=== PATIENT | male | born 1975 | race Caucasian/White ===

== ENCOUNTER → 2018-01-15 08:02 | Outpatient (CLI) | payer OTHER, SELFPAY ==
--- NOTE | 2018-01-15 | DI.MRI.S_ITS ---
PROCEDURE: MR LUMBAR SPINE WO CON INDICATIONS: PARS DEFECT WITH SPONDIDYOSIS TECHNIQUE: Noncontrast sagittal T1 spin echo and T2 fast echo, sagittal STIR, axial T1 and T2 fast spin echo through the lumbar spine. In cases with scoliosis, additional coronal T2 fast spin echo may be performed. COMPARISON: None. FINDINGS: Image quality: Excellent. Alignment and Curvature: Straightening of the normal lumbar lordosis. Trace retrolisthesis of L4-L5 and trace anterolisthesis of L5 on S1. Bone Marrow: Chronic L5 pars defects noted. No acute vertebral body compression fractures. Spinal Cord: Conus medullaris terminates at the L2 level. Visualized cord demonstrates normal signal and size. Paraspinous Soft Tissues: No paravertebral masses. L1-L2: No definite canal or foraminal narrowing. L2-L3: Facet degeneration without definite canal or foraminal stenosis. L3-L4: Mild broad-based posterior disc bulge and bilateral facet arthropathy. Mild canal narrowing. No definite foraminal stenosis. L4-L5: Broad-based posterior disc bulge and bilateral facet arthropathy. Mild canal narrowing. Moderate to severe right and moderate left foraminal narrowing. L5-S1: Posterior annular fissure and broad-based posterior disc bulge. Bilateral facet arthropathy. No definite foraminal stenosis. Mild left and right foraminal narrowing. IMPRESSION: Straightening of the normal lumbar lordosis with trace anterolisthesis of L5 on S1 and trace retrolisthesis of L4 and L5. No high-grade canal stenosis. Moderate to severe right L4-L5 foraminal narrowing. Moderate left L4-L5 foraminal narrowing. Mild bilateral L5-S1 foraminal stenoses. Chronic L5 pars defects. Dictated by: John Schaefer M.D. on 01/15/2018 at 9:11 Approved by: John Schaefer M.D. on 01/15/2018 at 9:17
== END ==
PROVIDERS: Visit Provider Orthopaedic Surgery
DX: M47.816 Spondylosis without myelopathy or radiculopathy, lumbar region (principal); M48.061 Spinal stenosis, lumbar region without neurogenic claudication; M43.06 Spondylolysis, lumbar region
CPT/HCPCS: 72148

== ENCOUNTER 2018-03-07 06:09 | Inpatient (IN) | payer OTHER, SELFPAY ==
[2018-02-20 07:42] VITALS: BMI 25.9
[2018-03-07] VITALS (21 sets, daily range): BP systolic 101–129; BP diastolic 70–84; PULSE 77–103; RESP 10–20; TEMP 36.3–37.1; O2SAT 94–99; BMI 26.1
--- NOTE | 2018-03-07 | DI.RAD.S_ITS ---
PROCEDURE: XR LUMBAR SPINE 2-3V INDICATIONS: L5-S1 TLIF TECHNIQUE: 2 views of the lumbar spine were acquired. COMPARISON: None. FINDINGS: 2 intraoperative fluoroscopy images demonstrate discectomy and posterior fusion at L5-S1. Surgical hardware is in expected position. Alignment is normal. IMPRESSION: Discectomy and posterior fusion at L5-S1. Dictated by: Xochitl Andrews M.D. on 03/07/2018 at 10:48 Approved by: Xochitl Andrews M.D. on 03/07/2018 at 10:49
--- NOTE | 2018-03-07 07:15 | PM.PREOP ---
Pre-operative Note Interval Note Pre-op Check: Yes History & Physical Reviewed by Physician and Yes Exam Performed Changes: No
[2018-03-07] MEDS: LACTATED RINGERS 1,000 ML 42 ML IV ×2 (07:25→09:50)
--- NOTE | 2018-03-07 07:45 | PM.OP.1 ---
Operative Date/Time/Diagnoses Date of procedure: 03/07/18 Time of procedure: 10:15 Pre-op diagnosis: lumbar stenosis with radiculopathy lumbar spondylolisthesis with pars defect Post-op diagnosis: same Procedure & Clinicians Procedure: L5S1 TLIF (post/post innerbody fusion) cage screws L5S1 Akers laminectomy microscope icbg aspirate placement of epidural catheter Indications: [age] year old male with intractable pain from stenosis. They had failed conservative management and requested operative intervention. Risks and benefits of surgery were discussed and appropriate consents were obtained. Surgeon: Ayden Vail Implementation Specialist Payroll: Basia Clarke Anesthesia Type: General Operative Notes Findings: none Closure Type: primary Specimen(s): none sent Implants & Drains: NuVasive Precept screws Globus rise cage Applied: catheter Estimated Blood Loss (mL): 20 Procedure in detail: The patient was brought to the operating room and intubated on the table. A time-out was performed. They were then rolled over to the well-padded Tee table in the prone position. Preoperative antibiotics were given. The back was prepped and draped in the standard sterile fashion. Using fluoroscopy, a 4 cm longitudinal incision was made to the right of the midline. We used Bovie to come down to and split the lumbodorsal fascia. Using fluoroscopy and monitoring, we then percutaneously placed Jamshidi needles down the pedicles of L5 and S1 on the right side. These were changed out to guidewires and then we tapped and then placed the NuVasive MAS Precept screw shanks. We then opened up the retractors and used Bovie to clear up the posterolateral gutter as well as medially along the lamina to the spinous processes. A bur was used to decorticate the transverse processes. We brought in the microscope. Using a combination of bur and Kerrison rongeurs, a Akers laminectomy was performed from the right side. We had to clear out the hypertrophic pars defect as well as decompress around the facet and the neural foramen. There is large amount of scar tissue around the hypertrophic pars defect that required extensive time to decompress. At the end of this we could sweep the ball probe safely to the other side and out the neural foramen and everything was open. Because this was a Akers laminectomy, this is separate and distinct from an approach to a standard TLIF as requires much more time and decompression over the pars defect. We then began the TLIF prep. A complete facetectomy was performed on this side at L5-S1. We carefully cleaned up the remainder of the foramen until we could easily retract the exiting root as well as clearing medially below the dura and expose the disc space. The disc was prepped with bipolar and then an annulotomy was performed. We performed a diskectomy using a combination of paddles, federico, Kerrison, and curettes. We distracted the disc using a paddle and locked the retractor in an open position. We then filled the disc space with Osteocell bone graft. We then placed the globus Rise cage under fluoroscopy and then filled this in with more bone graft. The distraction on the retractor was released to compress down. This completed the posterior interbody fusion portion of the TLIF at L5-S1. We then placed the screw heads, sandra, and locked down the set screws. The wound was copiously irrigated. A small stab incision was made over the PSIS. We used a Jamshidi needle to aspirate several mL of bone marrow from the pelvis. This was mixed with the remaining Osteocell and combined with all of the locally harvested bone graft and placed in the posterolateral gutter for the posterior fusion of the TLIF at L5-S1. An epidural catheter was then placed in the spinal canal by carefully depressing the dura and advancing it 6 cm cephalad under the remaining lamina without resistance. The muscle fascia was closed. The catheter was then injected with a solution containing 4 mL of 0.5% Marcaine, 1 mg Stadol, 4 mg Duramorph, and 100 mcg of fentanyl. This was injected without resistance and the catheter was pulled. We then went to the opposite side. Again using fluoroscopy, a 3 cm incision was made and Bovie was used to come down to split the fascia. Using neural monitoring and fluoroscopy, Jamshidi needles were advanced down the pedicles of [] on the [] side. These were switched over guidewires, tapped, and screws placed. We then placed a sandra and locked the set screws on this side. The wound was irrigated. The fascia was closed. Vancomycin powder was placed in the wounds. The superficial and skin were closed. A sterile dressing was placed. The patient was then rolled over extubated and brought to recovery room without complications. Complications: none Condition: stable Disposition: PACU Plan for aftercare: Inpatient. Up with physical therapy
[2018-03-07] MEDS: CEFAZOLIN 2 GM/100 ML FROZ.PIGGY IV ×2 (07:50→16:55)
--- NOTE | 2018-03-07 08:23 | SUR.OPER ---
Prone on spine table, head in foam head support, padded chest and pelvic supports, gel pad at knees, lower legs supported by pillows; nipples, genitalia and toes free of pressure, arms secured on foam padded arm boards at <90 degrees abduction. Tape over blanket at thigh secured to table.
[2018-03-07] MEDS: VANCOMYCIN 1,000 MG VIAL 1000 MG TOP (08:42)
[2018-03-07] MEDS: SODIUM CHLORIDE 0.9% 1,000 ML, GENTAMICIN 80 MG IRR (08:42)
[2018-03-07] MEDS: BUPIVACAINE 0.5% (PF) 4 ML, MORPHINE-PF 4 MG, BUTORPHANOL 1 MG, fentaNYL 100 MCG INJ (09:36)
[2018-03-07] MEDS: HYDROMORPHONE 2 MG INJ 0.5 MG IV ×5 (10:40→11:35)
[2018-03-07] MEDS: HYDROMORPHONE 2 MG INJ 1 MG IV (10:49)
[2018-03-07] MEDS: LORazepam 2 MG/ML SYRINGE 0.25 MG IV (10:54)
--- NOTE | 2018-03-07 11:19 | SUR.PHASEI ---
pt complaining of pain and pt medicated and repositioned. pt given lorazapam for anxiety. pt turned to right side. Iv infusing without difficulty and pt taking deep breaths. ice pack applied to his lower back .
[2018-03-07] MEDS: LACTATED RINGERS 1,000 ML 125 ML IV ×2 (13:27→20:47)
[2018-03-07] MEDS: HYDROCODONE/ACET 5/325 TABLET 2 TAB PO ×3 (13:27→21:43)
[2018-03-07] MEDS: CELECOXIB 200 MG CAPSULE 400 MG PO (13:27)
--- NOTE | 2018-03-07 13:53 | CM.IDA ---
Discharge Planning/Care Management CM Discharge Assessment Start: 03/07/18 13:36 Freq: Status: Active Protocol: Document 03/07/18 13:37 ROBERTO (Rec: 03/07/18 13:52 ROBERTO [email or web address]) Discharge Planning Assessment Assigned Fitter Welder DANIEL Gautam DPOA/Assigned Designee Name Brandy Terrell (Mom) Contact Information [phone] Advance Directives? No: Declines further information Prior Living Arrangements House Household Members none Type of transporation used prior to Drives own vehicle admit Independent with ADL's Yes Is patient alert and oriented? Yes Comment Likely DC home, need to assess . Comment Pt off the medical floor for spinal surgery today. DC needs pending assessment from this LIME SLUDGE MIXER and therapy team once pt is on the medical floor from the OR. Hx includes ETOH abuse and anxiety/depression. Transportation Arrangement Likely family to transport home. Review Status In Process
[2018-03-07] MEDS: hydrOXYzine pamoate 25 MG CAPSULE PO ×2 (14:51→20:53)
--- NOTE | 2018-03-07 15:22 | PT.IIE ---
Addendum entered and electronically signed by Alyssia Castanon PT 03/08/18 08:36: This is to certify that I have reviewed this documentation and POC. Original Note: Current Diagnoses Spondylolysis, site unspecified (03/07/18) Spinal stenosis, lumbar region with neurogenic claudication (03/07/18) Surgery Performed Operation Date: 03/07/18 07:45 Actual Procedures p L5-S1 Laminectomy & Instru fusion(TLIF)w/bone graft(Not Applicable) - Ayden Vail MD Surgical History (Last Updated 02/20/18 @ 09:05 by Raeann Guan RN) History of photorefractive keratectomy (PRK) (Acute) Hx of arthroscopy of left knee (Acute) Hx of arthroscopy of right knee (Acute) Medical History (Last Updated 02/20/18 @ 09:05 by Raeann Guan RN) Anxiety (Acute) Back pain (Acute) Bronchitis (Acute) Depression (Acute) HTN (hypertension) (Acute) Neck pain (Acute) Numbness (Acute) Rash (Acute) Sciatic leg pain (Acute) Sleep apnea (Acute) Physical Therapy Inpatient Evaluation/Re-Eval M1 PT/OT-IP Prior Functional Status Start: 03/07/18 16:18 Freq: NEEDED Status: Active Protocol: Document 03/07/18 15:22 (Rec: 03/07/18 17:27 [email or web address]) Medical Review Prior Functional Status Medical History Reviewed Yes Communication No deficits noted. Mobility and Gait Pt was previously independent using no AD with all mobilities. He states able to walk up to 5 miles without a problem. Primary limitations were stairs (he could do 2 without a problem but more were difficult/painful to complete). Social History Household Members none Living Arrangements House Number of Floors (Floors) One Floor Number of Stairs To Enter/Railing? 2 steps no rail Home Environment Standard Height Toilet Walk in Shower Home Equipment Hand Held Shower Employment Status Unemployed Additional Social History Comment Pt has friends who can help intermmittently upon d/c. He has a backup plan for if his mobility is not high enough at d/c to go home alone, his friend has a basement apartment he can stay in for a while with 24/7 assist of friend. M2 PT-IP Current Condition Start: 03/07/18 16:18 Freq: NEEDED Status: Active Protocol: Document 03/07/18 15:22 (Rec: 03/07/18 17:27 [email or web address]) Physical Therapy Current Condition Current Condition Evaluation Date 03/07/18 Treatment Diagnosis Lumbar TLIF; difficulty walking Onset Date 03/07/18 Precautions Lumbar Precautions Log Roll No Twisting Limit Bending Lifting Restriction of 10 lbs Gait Belt above Incisional Area M3 PT-IP Subjective Start: 03/07/18 16:18 Freq: NEEDED Status: Active Protocol: Document 03/07/18 15:22 (Rec: 03/07/18 17:27 [email or web address]) Subjective Physical Therapy Visit Type Type Initial Evaluation Visit Start Time 15:22 Visit Stop Time 16:09 Total Visit Minutes 47 Number of SERVICE ESTABLISHMENT ATTENDANT Visits 0 Physical Therapy Visit Comments Patient Comments Pt agreeable to mobilize with PT. His friend Herman is present this visit. Patient Goals Pt plans to go home at d/c with friends intermittently for assist. Therapy Pain Assessment Pain When Pain Assessed During Mobility Pain Present Pain Present Pain Reported Location Rt leg, low back Scale Used 5/10 at rest. 6/10 with mobility. Pain Behaviors Guarding Pain Management Techniques Apply Cold Modification of Treatment Re-positioning Timing of Activity with Medications M4 PT-IP Mobility and Gait Start: 03/07/18 16:18 Freq: NEEDED Status: Active Protocol: Document 03/07/18 15:22 (Rec: 03/07/18 17:27 [email or web address]) PT-Bed Mobility Assessment Rolling Type of Rolling Log Rolling Roll to Right Level of Assist Standby Assistance Supine to Sit Supine to Sit Standby Assistance Sit to Supine Sit to Supine Standby Assistance Scooting Scooting to Edge of Bed Standby Assistance PT-Transfer Assessment Sit to and From Stand Sit to and from Stand Contact Guard Assistance Equipment Transfer Assistive Device None Gait Belt Front Wheeled Walker Orthotic/Prosthetic Devices or Brace: No Transfers Transfer Destination Bed Chair Comments Mobility Comments Resting/seated BP 128/70, HR 75 and O2 94-96%. When cued for deep breating O2 increased to 98-100%. Pt able to complete log roll <> sidelying <> EOB with SBA and min cues for technique as well as tactile cues for legs off/on bed. Sit <> stand with fww was SBA. With no AD sit <> stand is CGA; pt able to demonstrate good body mechanics with no reminders/ cuing for technique, however he is slow and guarded with transition. No c/o of dizziness or nausea with all bed mobility as well as with sit <> stand. Gait Assessment Gait Gait Assistance Required: Standby Assistance Contact Guard Assist Distance (Feet) 30 Able to Maintain Weight Bearing Status Yes During Gait Assistive Devices Assistive Device None Gait Belt Front Wheeled Walker Orthotic/Prosthetic Devices or Brace: Yes Gait Deviations General Gait Pattern Decreased Stride Length Factors Limiting Gait Function Factors Limiting Gait Function Decreased Activity Tolerance Decreased Strength Limited Range of Motion Pain Poor Balance Poor Safety Awareness Comments Gait Comments Pt completes 30 ft ambulation with fww and SBA. Completed additional 30 ft. with no AD CGA and pt tends to touch bed or wall for balance. He demonstrates shortened stride length but is able to correct this with min cuing. He continues to be fairly guarded with ambulation. PT-Balance Assessment Sitting Balance and Reactions Static Sitting Balance Ability Good Dynamic Sitting Balance Ability Good Standing Balance and Reactions Static Standing Balance Ability Good Dynamic Standing Balance Ability Fair Device Used fww and no AD M5 PT-IP Objective Assessments Start: 03/07/18 16:18 Freq: NEEDED Status: Active Protocol: Document 03/07/18 15:22 (Rec: 03/07/18 17:27 [email or web address]) Orientation Orientation/Cognition Level of Alertness Alert Orientation Name Birthday Place Situation Language Function Ability No Deficits Noted Safety Awareness Decreased Safety Awareness Comments Pt appears a bit sleepy this session and has trouble keeping his eyes open at some times during interviewing this session, however, he is able to respond appropriately and follows directions well. Strength Lower Extremity Strength Assessment Within Functional Limits Sensation Assessment Sensation Light Touch Intact Comments Sensation Comments Pt denies numbness and tingling at rest and during mobilty. M6 PT-IP Treatment Start: 03/07/18 16:18 Freq: NEEDED Status: Active Protocol: Document 03/07/18 15:22 (Rec: 03/07/18 17:27 [email or web address]) Physical Therapy Treatment Education Education Provided Precautions Weight Bearing Status Post-Op Packet Safety M7 PT-IP Assessment and Plan Start: 03/07/18 16:18 Freq: NEEDED Status: Active Protocol: Document 03/07/18 15:22 (Rec: 03/07/18 17:27 [email or web address]) PT Summary Assessment and Plan Potential Rehabilitation Potential Good Status of Condition at Evaluation Stable Summary Impairments Pain ROM Strength Balance Bed Mobility Transfers Gait Activity Tolerance Progress Towards Goals Progressing Toward Goals Assessment Summary Pt s/p Lumbar TLIF with difficulty walking. He was CGA with sit <> stands and 30 ft. walking without AD this session. Will assess pt safety with spc as pt is still requiring CGA for safe ambulation. Recommend d/c home with assist when pt is medically stable, and pending completion of stair climbing and progression to independent ambulation. Goals Bed Mobility Goal Independent Transfer Goal Independent Cane Gait Goal Independent Cane Gait Distance 150 Other Goals to improve ambulation up to 150 ft with least restrictive AD/without AD. Up/down 2 steps with independently with no AD or modified independent with spc as appropriate for pt safety. Days to Meet Goals 3 Frequency of Treatment Frequency Of Treatment Twice a Day Treatment Plan Physical Therapy Treatment Plan Bed Mobility Training Transfer Training Gait Training Therapeutic Exercise Balance Retraining Post Op Education Discharge Planning Hot or Cold Pack Neuromuscular Re-ed Coordination Retraining Manual Therapy Other Recommendations and Next Treatment stair climbing. ambulation Focus with spc and/or no AD as appropriate. Recommendations To Nursing Amount of Assist Needed 1 Person Assist Discharge Recommendations PT Discharge Recommendations Home with Assistance Equipment Needed for Home Before spc pending pt mobility at d/c Discharge
--- NOTE | 2018-03-07 15:23 | PC.NURSE ---
day shift pt arrived around 1155. States pain controlled at 3-4. Did request pain meds when pain at 4. Provided 2 norco. Pt stated that pain was no better after 1 hr, provided pt with 1 vistaril. Will alert staff if no improvement. Plan to work with PT. pt A/Ox4, charles patent and draining clear yellow urine. PIV in place in L hand, LR at 125. hourly rounding provided, call light within reach.
[2018-03-07] MEDS: HYDROMORPHONE 1 MG INJ 0.5 MG IV ×3 (16:56→22:49)
--- NOTE | 2018-03-07 17:43 | PC.NURSE ---
Addendum entered by Gil Carballo 03/07/18 22:29: PAIN MANAGEMENT: Patient clarified that he would like to be woken not only for his q2 PRN IV Dilauded but also his q4 PRN 2 tab [place] and his q4 PRN Visteril. These medications were written on the patients white board per patient instructions. Original Note: Addendum entered by Gil Carballo 03/07/18 22:18: SAFETY MEASURES: Patient is in the bed, which is low and locked. Bed rails up. Call light is within reach and patient was instructed to call before getting up. Patient verbalized understanding. Original Note: Addendum entered by Gil Carballo 03/07/18 21:56: PAIN MANAGEMENT: Patient stated that he was ready for another dose of IV Dilaudid and that strongly felt the pain pills were not controlling his pain. Patient stated that he felt he was having breakthrough pain and that he felt like he was chasing after the pain instead of managing it. Patient asked if we could schedule the q2 PRN Dilaudid so he didn't have to ring and wait for it. This student nurse and the charge nurse stated that we did not have the authority to rewrite the order, however the message could be passed along to the maintenance mechanic 2nd shift nurse that he would like to be woken up q2 for the PRN IV Dilaudid until he felt like his pain was being managed by the PO [place] alone. Patient states his pain is a 7 but also states that is the worst pain he has been experiencing. He stated that he would like to talk to the Dr in the AM about better pain management. ASSESSMENTS: Patient is alert and oriented. Mildly agitated with breakthrough pain. Patient reports mild pruritus but no rash is present. Patient appears flushed. Patient ate a full evening meal with no post meal nausea. Patient has not had the urge to have a bowel movement. OTHER MEDS: This student nurse would like to correct themselves, the patient had lactated ringers running in conjunction with the ABX, not normal saline as previously stated. This nursing assistants teacher hung a new bag of lactated ringers since the last note and passed the 21:00 medications. OTHER: Patient has a friend sleeping over on couch. Original Note: Student Nurse Note: This student nurse arrived on shift at 15:00. PAIN MANAGEMENT:The patient had PT in his room post op to ambulate from bed to chair. After PT left this student nurse introduced herself and assessed pain level post ambulation. The patient stated that it was a 4 and that it got worse after ambulation. This student nurse asked the patient if he would like any pain medication and he stated yes definitely. This student nurse reviewed the MAR and determined that it was too early for PO pain medication but noted the patient did have Hydromorphone 0.2mg IV ordered q2 for breakthrough pain. This student nurse notified the patient and he stated yes I would like the IV medication. The charge nurse was notified and then administered the PRN IV Hydromorphone. Patient stated that his pain immediately went down but did not state a number. In addition to this the patient received Hydrocodone 5/325 2 tabs PO PRN Q4 at 17:30. ASSESSMENTS: This student nurse performed the physical assessment, fall risk assessment, and IV line assessment. There are no exceptions to be noted. OTHER MEDS: This student nurse hung an IV piggyback of Cefaloxin 2mg/100ml running at 200ml/hour with total volume to be infused 100ml. Normal saline was/is running. PX ED: This student nurse reminded the patient of the importance of the incentive spirometer and deep coughing post op, and frequency of use. This student nurse witness the use of the IS while in the room. This student nurse reminded the patient on the importance of staying hydrated and witnessed the patient drinking water regularly. The patient had a large urine output in the cath bag and urine was clear and light yellow.
[2018-03-07] MEDS: LISINOPRIL 20 MG TABLET PO (20:50)
[2018-03-07] MEDS: DULOXETINE 30 MG CAPSULE 60 MG PO (20:50)
[2018-03-07] MEDS: GABAPENTIN 300 MG CAPSULE 900 MG PO (20:51)
[2018-03-07] MEDS: DOCUSATE 100 MG CAPSULE PO (20:51)
[2018-03-07] MEDS: CELECOXIB 200 MG CAPSULE PO (20:51)
[2018-03-07] MEDS: SENNOSIDES 8.6 MG TABLET 17.2 MG PO (20:51)
[2018-03-08] VITALS: BP 106/66; PULSE 90; RESP 18; TEMP 36.6; O2SAT 93
[2018-03-08] MEDS: CEFAZOLIN 2 GM/100 ML FROZ.PIGGY IV (00:20)
[2018-03-08] MEDS: hydrOXYzine pamoate 25 MG CAPSULE PO ×4 (02:29→17:11)
[2018-03-08] MEDS: HYDROCODONE/ACET 5/325 TABLET 2 TAB PO ×2 (02:29→06:57)
[2018-03-08 05:48] VITALS: BP 102/70; PULSE 69; RESP 16; TEMP 36.3; O2SAT 98
[2018-03-08] MEDS: HYDROMORPHONE 1 MG INJ 0.5 MG IV ×2 (05:55→08:32)
[2018-03-08 06:07] LABS: Hematocrit 36.9 % (41-53); Hemoglobin 12.9 g/dL (13.5-17.5)
--- NOTE | 2018-03-08 07:03 | P.PN_ITS ---
Subjective Date Patient Seen: 03/08/18 Time Patient Seen: 07:02 Interval history: Pain is about 3/10 right now. The Vicodin only seems to be lasting about 3 hr and then he is needing breakthrough Dilaudid IV to supplement. No leg pain, all low back. Exam Vital Signs (past 8 hours): - 03/08/18 00:00 03/08/18 05:48 Temperature 97.8 F 97.4 F L Pulse Rate 90 69 Respiratory Rate 18 16 Blood Pressure 106/66 102/70 Pulse Oximetry 93 98 Oxygen Delivery Method Room Air Oxygen Flow Rate 0 Const Orientation: alert and oriented x3 Back/Spine/Pelvis Other: Dressing CDI. 5/5 motor both lower extremities. Objective Labs Result Diagrams: 03/08/18 05:25 Labs: Laboratory Results - last 24 hr 03/08/18 05:25 Hgb 12.9 L Hct 36.9 L Assessment & Plan Post-op Postoperative Procedures Operation Date: 03/07/18 07:45 Actual Procedures Side Surgeon p L5-S1 Laminectomy & Instru fusion(TLIF)w/bone graft Not Applicable Ayden Vail MD He is doing well. I am going to switch him from [place] to oxycodone and move him up to 3 hr time schedule. Mobilize with physical therapy. Anticipate discharge probably tomorrow. Quality VTE Deep Vein Thrombosis/Pulmonary Embolism Present on Admission: No
[2018-03-08 08:03] VITALS: BP 108/66; PULSE 57; RESP 16; TEMP 36.4; O2SAT 97
[2018-03-08] MEDS: CHOLECALCIFEROL (VITAMIN D3) 5,000 UNIT TABLET 20000 UNIT PO (08:31)
[2018-03-08] MEDS: CELECOXIB 200 MG CAPSULE PO (08:31)
[2018-03-08] MEDS: DOCUSATE 100 MG CAPSULE PO (08:31)
--- NOTE | 2018-03-08 10:14 | OT.IP.EVAL ---
Current Diagnoses Spondylolysis, site unspecified (03/07/18) Spinal stenosis, lumbar region with neurogenic claudication (03/07/18) Surgery Performed Operation Date: 03/07/18 07:45 Actual Procedures p L5-S1 Laminectomy & Instru fusion(TLIF)w/bone graft(Not Applicable) - Ayden Vail MD Past Medical History (Last Updated 02/20/18 @ 09:05 by Raeann Guan RN) Anxiety (Acute) Back pain (Acute) Bronchitis (Acute) Depression (Acute) HTN (hypertension) (Acute) Neck pain (Acute) Numbness (Acute) Rash (Acute) Sciatic leg pain (Acute) Sleep apnea (Acute) Surgical History (Last Updated 02/20/18 @ 09:05 by Raeann Guan RN) History of photorefractive keratectomy (PRK) (Acute) Hx of arthroscopy of left knee (Acute) Hx of arthroscopy of right knee (Acute) Occupational Therapy Inpatient Evaluation/Re-Eval M1 PT/OT-IP Prior Functional Status Start: 03/07/18 16:18 Freq: NEEDED Status: Active Protocol: Document 03/07/18 15:22 (Rec: 03/07/18 17:27 [email or web address]) Medical Review Prior Functional Status Medical History Reviewed Yes Communication No deficits noted. Mobility and Gait Pt was previously independent using no AD with all mobilities. He states able to walk up to 5 miles without a problem. Primary limitations were stairs (he could do 2 without a problem but more were difficult/painful to complete). Social History Household Members none Living Arrangements House Number of Floors (Floors) One Floor Number of Stairs To Enter/Railing? 2 steps no rail Home Environment Standard Height Toilet Walk in Shower Home Equipment Hand Held Shower Employment Status Unemployed Additional Social History Comment Pt has friends who can help intermmittently upon d/c. He has a backup plan for if his mobility is not high enough at d/c to go home alone, his friend has a basement apartment he can stay in for a while with 24/7 assist of friend. M1 PT/OT-IP Prior Functional Status Start: 03/08/18 09:57 Freq: NEEDED Status: Active Protocol: Document 03/08/18 09:57 [facility] (Rec: 03/08/18 10:14 [facility] [email or web address]) Medical Review Prior Functional Status Medical History Reviewed Yes Diet/Fluid Consistency Regular Thin Liquids Communication No deficits noted. Mobility and Gait Pt was previously independent using no AD with all mobilities. He states able to walk up to 5 miles without a problem. Primary limitations were stairs (he could do 2 without a problem but more were difficult/painful to complete). Activities of Daily Living and IADL's Pt states was completely independent. Prior Functional Level (Other details) Pt has a dog, Jace. Pt [address] and therefore just has the let the dog out daily from the house. Social History Household Members none Living Arrangements House Number of Floors (Floors) One Floor Number of Stairs To Enter/Railing? 2 steps no rail Home Environment Standard Height Toilet Walk in Shower Home Equipment Hand Held Shower Employment Status Unemployed Additional Social History Comment Pt has friends who can help intermmittently upon d/c. He has a backup plan for if his mobility is not high enough at d/c to go home alone, his friend has a basement apartment he can stay in for a while with 24/7 assist of friend. If going to friend's house would have to negotiate multiple steps. M2 OT-IP Current Condition Start: 03/08/18 09:57 Freq: Status: Active Protocol: Document 03/08/18 09:57 [facility] (Rec: 03/08/18 10:14 [facility] [email or web address]) Occupational Therapy Current Condition Current Condition Evaluation Date 03/08/18 Treatment Diagnosis Spinal Stenosis Diagnosis Onset Date 03/07/18 Post Operative Precautions Lumbar Precautions Log Roll No Twisting Limit Bending Lifting Restriction of 10 lbs Gait Belt above Incisional Area M3 OT- IP Subjective and Pain Start: 03/08/18 09:57 Freq: Status: Active Protocol: Document 03/08/18 09:57 [facility] (Rec: 03/08/18 10:14 [facility] [email or web address]) OT- Subjective Occupational Therapy Visit Type Type Initial Evaluation Visit Start Time 09:05 Visit Stop Time 09:50 Total Visit Minutes 45 Occupational Therapy Visit Comments Patient/Caregiver Goals Pt wanting to go home when stable. OT Pain Assessment Pain When Pain Assessed At Rest Pain Present Pain Present Pain Reported Location Rt leg, low back Intensity 2 Scale Used Numeric (1 - 10) M4 OT- IP ADL's Start: 03/08/18 09:57 Freq: Status: Active Protocol: Document 03/08/18 09:57 [facility] (Rec: 03/08/18 10:14 [facility] [email or web address]) OT [id number] General Evaluation Self-Feeding Ability Independent OT ADL-Dressing General Eval Upper Body Dressing Ability Independent Areas Needing Assistance Socks Comments OT Dressing Comments Pt able to cross his legs comfortable to dilip/doff socks . Pt issued jigsaw operator to use at home. OT ADL-Toileting Comments OT Toileting Comments Educated to pt to stand for pericare needs. Pt states prior bends and wipes from the front after bowel movement. OT ADL-Bathing Bathing Type Bathing Type Shower General Evaluation Bathing Ability Minimal Assistance Areas Needing Assistance Wash/Dry Upper Body Devices Bathing Equipment Hand Held Shower Sprayer Shower Chair with Arms Comments OT Bathing Comments Pt just needing assist to wash /dry his back. Pt able to comfortable stand with use of grab bars at times. M5 OT- IP IADL's Start: 03/08/18 09:57 Freq: Status: Active Protocol: Document 03/08/18 09:57 [facility] (Rec: 03/08/18 10:14 [facility] [email or web address]) OT-Instrumental Activities of Daily Living Home Safety Awareness Home Safety Comments Pt to have friends come in daily to assist with needs. Pt able to state all back precautions and incorporate during ADL's. M6 OT- IP Functional Cognition Start: 03/08/18 09:57 Freq: Status: Active Protocol: Document 03/08/18 09:57 [facility] (Rec: 03/08/18 10:14 [facility] [email or web address]) Cognitive Factors Limiting Selfcare Function Cognitive Ability Level of Alertness Alert Patient Orientation Name Place Situation Ability to Follow Commands Able to Follow One Step Commands Able to Follow Multi-Step Commands Memory Description No Deficits Noted Safety Awareness No Deficits Noted Problem Solving Ability No deficits Noted OT- Vision and Hearing OT- Hearing Assessment OT- Hearing Assessment WFL M7 OT- IP Mobility and Balance Start: 03/08/18 09:57 Freq: Status: Active Protocol: Document 03/08/18 09:57 [facility] (Rec: 03/08/18 10:14 [facility] [email or web address]) OT-Transfer Assessment Sit to and From Stand Sit to and from Stand Standby Assistance Transfers Transfer Ability Independent Technique Transfer Destination Chair Toilet Transfer Technique Stand Step Pivot Devices Transfer Assistive Devices None Comments Mobility Comments Pt able to independently stand from recliner to walk to the bathroom. Nursing just removed catheter and OT and nurse both agreed okay for pt to use the bathroom on his own during the day. OT- Gait Assessment Gait Gait Assistance Required: Independent Assistive Devices Assistive Device None Comments Gait Ability Comments Spoke to [employer] that pt may need cane for steps/uneven terrrain . OT- Balance Assessment Sitting Balance and Reactions Static Sitting Balance Ability Normal Dynamic Sitting Balance Ability Normal Standing Balance and Reactions Static Standing Balance Ability Normal Dynamic Standing Balance Ability Good M8 OT- IP Objective Assessments Start: 03/08/18 09:57 Freq: Status: Active Protocol: Document 03/08/18 09:57 [facility] (Rec: 03/08/18 10:14 [facility] [email or web address]) OT Gross Range of Motion Upper Extremity Range of Motion Assessment Within Functional Limits OT Strength Upper Extremity Strength Assessment Within Functional Limits OT-Muscle Tone Assessment Muscle Tone WNL Yes M9 OT- IP Assessment and Plan Start: 03/08/18 09:57 Freq: Status: Active Protocol: Document 03/08/18 09:57 [facility] (Rec: 03/08/18 10:14 [facility] [email or web address]) OT Summary Assessment and Plan Potential Rehabilitation Potential Excellent Analytic Complexity at Evaluation Low Summary OT Impairments Pain Balance Progress Towards Goals Progressing Toward Goals Assessment Summary Pt Low complexity and has good support of friends when going home. Pt able to show good safety for all BAck precautions for ADl's. [facility]. Goals Patient/Caregiver Education Goal Demonstrate Post-Op Precautions Caregiver Independent Assisting Patient Days to Meet Goals 1 Frequency of Treatment Frequency Of Treatment Once a Day Treatment Plan OT Treatment Plan Patient/Family Education Discharge Planning Discharge Recommendations OT Discharge Recommendations Home with Assistance
--- NOTE | 2018-03-08 10:30 | PT.IPTN ---
Current Diagnoses Spondylolysis, site unspecified (03/07/18) Spinal stenosis, lumbar region with neurogenic claudication (03/07/18) Surgery Performed Operation Date: 03/07/18 07:45 Actual Procedures p L5-S1 Laminectomy & Instru fusion(TLIF)w/bone graft(Not Applicable) - Ayden Vail MD Physical Therapy Treatment Note M2 PT-IP Current Condition Start: 03/07/18 16:18 Freq: NEEDED Status: Active Protocol: Document 03/07/18 15:22 (Rec: 03/07/18 17:27 [email or web address]) Physical Therapy Current Condition Current Condition Evaluation Date 03/07/18 Treatment Diagnosis Lumbar TLIF; difficulty walking Onset Date 03/07/18 Precautions Lumbar Precautions Log Roll No Twisting Limit Bending Lifting Restriction of 10 lbs Gait Belt above Incisional Area M3 PT-IP Subjective Start: 03/07/18 16:18 Freq: NEEDED Status: Active Protocol: Document 03/08/18 10:30 GGD (Rec: 03/08/18 12:19 GGD [id number]) Subjective Physical Therapy Visit Type Type Treatment Note Visit Start Time 10:00 Visit Stop Time 10:30 Total Visit Minutes 30 Number of BUSINESS ETHICS PROFESSOR Visits 1 Physical Therapy Visit Comments Patient Comments Pt states he doing better. Therapy Pain Assessment Pain When Pain Assessed At Rest Pain Present Pain Present Pain Reported Location Rt leg, low back Intensity 4 Scale Used Numeric (1 - 10) M4 PT-IP Mobility and Gait Start: 03/07/18 16:18 Freq: NEEDED Status: Active Protocol: Document 03/08/18 10:30 GGD (Rec: 03/08/18 12:19 GGD [id number]) PT-Transfer Assessment Sit to and From Stand Sit to and from Stand Independent Standby Assistance Use of Upper Extremities Equipment Transfer Assistive Device None Gait Belt Orthotic/Prosthetic Devices or Brace: No Transfers Transfer Destination Chair Toilet Gait Assessment Gait Gait Assistance Required: Standby Assistance Distance (Feet) 740 Able to Maintain Weight Bearing Status Yes During Gait Assistive Devices Assistive Device None Gait Belt Orthotic/Prosthetic Devices or Brace: Yes Factors Limiting Gait Function Factors Limiting Gait Function Decreased Sensation Pain Stair Climbing Assessment Evaluation Level of Assist On Stairs Standby Assistance Contact Guard Assistance Devices Stair Climbing Assistive Devices None Straight Cane Technique/Endurance Stair Climbing Direction Ascend and Descend Stair Climbing Technique Step to Step Number of Steps Climbed 3 Query Text: Stair Climbing Set # Repetitions (reps) 2 Comments Stair Climbing Comments one set of stairs with SPC with SBA and one set with no rail and CGA M5 PT-IP Objective Assessments Start: 03/07/18 16:18 Freq: NEEDED Status: Active Protocol: Document 03/07/18 15:22 (Rec: 03/07/18 17:27 [email or web address]) Orientation Orientation/Cognition Level of Alertness Alert Orientation Name Birthday Place Situation Language Function Ability No Deficits Noted Safety Awareness Decreased Safety Awareness Comments Pt appears a bit sleepy this session and has trouble keeping his eyes open at some times during interviewing this session, however, he is able to respond appropriately and follows directions well. Strength Lower Extremity Strength Assessment Within Functional Limits Sensation Assessment Sensation Light Touch Intact Comments Sensation Comments Pt denies numbness and tingling at rest and during mobilty. M6 PT-IP Treatment Start: 03/07/18 16:18 Freq: NEEDED Status: Active Protocol: Document 03/08/18 10:30 GGD (Rec: 03/08/18 12:19 GGD [id number]) Physical Therapy Treatment Education Education Provided Precautions Safety M7 PT-IP Assessment and Plan Start: 03/07/18 16:18 Freq: NEEDED Status: Active Protocol: Document 03/08/18 10:30 GGD (Rec: 03/08/18 12:19 GGD [id number]) PT Summary Assessment and Plan Summary Assessment Summary Pt improving with mobility. He is safe and stable with gait and stair mobility. He need cues for percautions with mobility. He safely d/c home when medically stable. Frequency of Treatment Frequency Of Treatment Twice a Day Treatment Plan Other Recommendations and Next Treatment stair climbing. ambulation Focus with spc and/or no AD as appropriate. Recommendations To Nursing Amount of Assist Needed 1 Person Assist Discharge Recommendations PT Discharge Recommendations Home with Assistance
[2018-03-08] MEDS: OXYCODONE IR 10 MG TABLET PO ×2 (11:14→14:10)
[2018-03-08 13:00] VITALS: BP 105/61; PULSE 83; RESP 16; TEMP 36.4; O2SAT 98
--- NOTE | 2018-03-08 14:40 | PT.IPTN ---
Current Diagnoses Spondylolysis, site unspecified (03/07/18) Spinal stenosis, lumbar region with neurogenic claudication (03/07/18) Surgery Performed Operation Date: 03/07/18 07:45 Actual Procedures p L5-S1 Laminectomy & Instru fusion(TLIF)w/bone graft(Not Applicable) - Ayden Vail MD Physical Therapy Treatment Note M2 PT-IP Current Condition Start: 03/07/18 16:18 Freq: NEEDED Status: Active Protocol: Document 03/07/18 15:22 (Rec: 03/07/18 17:27 [email or web address]) Physical Therapy Current Condition Current Condition Evaluation Date 03/07/18 Treatment Diagnosis Lumbar TLIF; difficulty walking Onset Date 03/07/18 Precautions Lumbar Precautions Log Roll No Twisting Limit Bending Lifting Restriction of 10 lbs Gait Belt above Incisional Area M3 PT-IP Subjective Start: 03/07/18 16:18 Freq: NEEDED Status: Active Protocol: Document 03/08/18 14:40 GGD (Rec: 03/08/18 15:17 GGD [email or web address]) Subjective Physical Therapy Visit Type Type Treatment Note Visit Start Time 14:25 Visit Stop Time 14:40 Total Visit Minutes 15 Number of AUTOMATIC CORN GRINDER OPERATOR Visits 2 Physical Therapy Visit Comments Patient Comments Pt states he doing a lot better. Therapy Pain Assessment Pain When Pain Assessed At Rest Pain Present Pain Present Denied Pain M4 PT-IP Mobility and Gait Start: 03/07/18 16:18 Freq: NEEDED Status: Active Protocol: Document 03/08/18 14:40 GGD (Rec: 03/08/18 15:17 GGD [email or web address]) PT-Bed Mobility Assessment Rolling Type of Rolling Log Rolling Roll to Right Level of Assist Standby Assistance Supine to Sit Supine to Sit Standby Assistance Sit to Supine Sit to Supine Standby Assistance Scooting Scooting to Edge of Bed Independent PT-Transfer Assessment Sit to and From Stand Sit to and from Stand Independent Standby Assistance Use of Upper Extremities Equipment Transfer Assistive Device None Gait Belt Orthotic/Prosthetic Devices or Brace: No Transfers Transfer Destination Bed Gait Assessment Gait Gait Assistance Required: Standby Assistance Distance (Feet) 300 Able to Maintain Weight Bearing Status Yes During Gait Assistive Devices Assistive Device None Gait Belt Orthotic/Prosthetic Devices or Brace: Yes Factors Limiting Gait Function Factors Limiting Gait Function Decreased Sensation Pain M5 PT-IP Objective Assessments Start: 03/07/18 16:18 Freq: NEEDED Status: Active Protocol: Document 03/07/18 15:22 (Rec: 03/07/18 17:27 [email or web address]) Orientation Orientation/Cognition Level of Alertness Alert Orientation Name Birthday Place Situation Language Function Ability No Deficits Noted Safety Awareness Decreased Safety Awareness Comments Pt appears a bit sleepy this session and has trouble keeping his eyes open at some times during interviewing this session, however, he is able to respond appropriately and follows directions well. Strength Lower Extremity Strength Assessment Within Functional Limits Sensation Assessment Sensation Light Touch Intact Comments Sensation Comments Pt denies numbness and tingling at rest and during mobilty. M6 PT-IP Treatment Start: 03/07/18 16:18 Freq: NEEDED Status: Active Protocol: Document 03/08/18 14:40 GGD (Rec: 03/08/18 15:17 GGD [email or web address]) Physical Therapy Treatment Education Education Provided Precautions Safety M7 PT-IP Assessment and Plan Start: 03/07/18 16:18 Freq: NEEDED Status: Active Protocol: Document 03/08/18 14:40 GGD (Rec: 03/08/18 15:17 GGD [email or web address]) PT Summary Assessment and Plan Summary Assessment Summary Pt improving with mobility. He was safe with gait without assistive device. He did need cues for precautions with mobility. He safe for home D/C when medically stable. Frequency of Treatment Frequency Of Treatment Twice a Day Treatment Plan Physical Therapy Treatment Plan Bed Mobility Training Transfer Training Gait Training Therapeutic Exercise Balance Retraining Post Op Education Discharge Planning Hot or Cold Pack Neuromuscular Re-ed Coordination Retraining Manual Therapy Recommendations To Nursing Amount of Assist Needed 1 Person Assist Discharge Recommendations PT Discharge Recommendations Home with Assistance
--- NOTE | 2018-03-08 16:44 | PM.DS.1 ---
History of Present Illness Date Patient Seen: 03/08/18 Time Patient Seen: 16:45 Chief complaint: [id number] L5-S1 Narrative: 43-year-old male with lumbar stenosis and spondylolisthesis and a pars defect Discharge Providers Date of admission: 03/07/18 06:09 Primary care physician: Dipak Cummings MD Consults: 03/07/18 11:59 Consult to Occupational Therapy Evaluate & Treat Comment: Physician Instructions: Evaluate and treat Consult to Physical Therapy Evaluate & Treat Comment: Physician Instructions: Evaluate and Treat Discharge provider: Ayden Vail MD Discharge Date: 03/08/18 Summary Discharge Diagnosis: Lumbar stenosis with radiculopathy Lumbar spondylolisthesis with a pars defect Hospital Course: He was admitted to the operating room on 03/07/2018. He underwent a L5-S1 TLIF.. He did very well. He in adequate pain relief with hydrocodone but was switched over to oxycodone was doing much better. He mobilized well with therapy and was independent with ambulation. By the evening of postop day 1, he felt ready to go home. Status at Discharge Functional status at discharge: uses cane/walker Overall status at discharge: patient is progressing back to baseline Time Spent with Patient Less than 30 minutes Exam Vital Signs (past 8 hours): - 03/08/18 13:00 Temperature 97.5 F L Pulse Rate 83 Respiratory Rate 16 Blood Pressure 105/61 Pulse Oximetry 98 Oxygen Delivery Method Room Air Oxygen Flow Rate 0 Const Orientation: alert and oriented x3 Back/Spine/Pelvis Other: Dressing CDI. 5/5 motor both lower extremities. Objective Labs Result Diagrams: 03/08/18 05:25 Labs: Laboratory Results - last 24 hr 03/08/18 05:25 Hgb 12.9 L Hct 36.9 L Discharge Plan Discharge Plan Patient Disposition: Home Discharge comment: Follow-up 1.5 weeks Discharge Med Rec/Prescriptions Prescriptions: New celecoxib [Celebrex] 200 mg Capsule 200 mg PO BID PRN (Reason: pain) Qty: 60 RF: 0 hydroxyzine pamoate 25 mg Capsule 25 mg PO Q4HR PRN (Reason: spasms) Qty: 30 RF: 0 oxycodone 5 mg Tablet See Label Instructions .ROUTE .COMPLEX PRN (Reason: Pain, Moderate (4-6)) Qty: 70 RF: 0 Continue lisinopril 20 mg Tablet 20 mg PO BEDTIME RF: 0 gabapentin 300 mg Capsule 900 mg PO BEDTIME RF: 0 duloxetine 60 mg Capsule,Delayed Release(Dr/Ec) 60 mg PO BEDTIME RF: 0 cholecalciferol (vitamin D3) [Vitamin D3] 5,000 unit Tablet 20,000 unit PO DAILY RF: 0 Discontinued ibuprofen 200 mg Capsule 400 mg PO DAILY PRN (Reason: pain) RF: 0 Provider Discharge Instructions Activity: Limited bend, twist, left. 10 lb maximum Skin/Wound/Dressing Care Dressing: May change dressing and shower postop day 5. Discharge Data Primary Care Provider: Dipak Cummings Attending Provider: Ayden Vail Admit Date/Time: 03/07/18 06:09 Quality VTE Deep Vein Thrombosis/Pulmonary Embolism Present on Admission: No
[2018-03-08] MEDS: OXYCODONE IR 5 MG TABLET PO ×2 (17:11)
--- NOTE | 2018-03-09 08:20 | CM.DPC ---
DCP Discharge Home Per Ortho MD, pt was medically stable to d/c home yesterday evening after SW shift and no identified barriers to discharge. Per PT and RN, recommending safe d/c home with friends to assist and no concerns at this time. Plan: Patient discharged home last night 03/08/18 via friend POV and no SW needs. DANIEL Quigley
== END 2018-03-08 17:30 | disposition home or self-care (01) | DRG 455 ==
PROVIDERS: Admitting Provider Orthopaedic Surgery; Visit Provider Orthopaedic Surgery
PROC: 0SG30AJ Fusion of Lumbosacral Joint with Interbody Fusion Device, Posterior Approach, Anterior Column, Open Approach (ICD-10-PCS; principal; 2018-03-07 07:45)
DX: M48.07 Spinal stenosis, lumbosacral region (principal); M48.062 Spinal stenosis, lumbar region with neurogenic claudication; M43.00 Spondylolysis, site unspecified; G47.30 Sleep apnea, unspecified; I10 Essential (primary) hypertension; F32.9 Major depressive disorder, single episode, unspecified
CPT/HCPCS: 36415; 72100; 76001; 85014; 85018; 94760; 94762; 97116; 97161; 97165; 97530; 97535; C1776; J0330; J0595; J0690; J1100; J1170; J2060; J2250; J2274; J2405; J2704; J3010

== ENCOUNTER → 2019-09-15 11:09 | Outpatient (CLI) | payer OTHER, SELFPAY ==
[2018-03-07 13:32] VITALS: BMI 26.1
[2019-09-15 12:21] LABS: Add Manual Diff / Slide Review NO; Basophils Absolute Auto 100 /uL (0-100); Basophils Percent Auto 1.4 % (0-2); Eosinophils Absolute Auto 200 /uL (0-450); Eosinophils Percent Auto 2.4 % (2-4); Lymphocytes Absolute Auto 1200 /uL (1100-4500); Lymphocytes Percent Auto 17.5 % (25-40); Mean Corpuscular Hemoglobin 31.2 PG (26-34); Mean Corpuscular Volume 86.6 fL (80-100); Monocytes Absolute Auto 400 /uL (0-900); Monocytes Percent Auto 6.8 % (3-14); Neutrophils Absolute Auto 4700 /uL (1500-7000); Neutrophils Percent Auto 71.9 % (50-75); Platelet Count 342 X10^3/uL (150-400); Red Cell Distribution Width 12.5 % (11.6-14.8); White Blood Cell Count 6.6 X10^3/uL (4.5-11.0)
[2019-09-15 12:33] LABS: Hemoglobin A1C% w Est Avg Glu 4.7 % (4.0-6.0)
[2019-09-15 12:51] LABS: Rheumatoid Factor < 8.6 IU/mL (<12.0)
[2019-09-15 12:55] LABS: Erythrocyte Sedimentation Rate 18 MM/HR (0-15)
[2019-09-16 19:36] LABS: ANA Screen, IFA Negative (.)
== END ==
PROVIDERS: PCP Family Medicine; Referring Provider Family Medicine; Visit Provider Family Medicine
DX: M25.50 Pain in unspecified joint (principal)
CPT/HCPCS: 36415; 83036; 85025; 85651; 86038; 86430

== ENCOUNTER → 2021-01-31 09:58 | Outpatient (CLI) | payer OTHER, SELFPAY ==
[2018-03-07 13:32] VITALS: BMI 26.1
[2021-01-31 10:35] LABS: Add Manual Diff / Slide Review NO; Basophils Absolute Auto 0 /uL (0-100); Basophils Percent Auto 1.4 % (0-2); Eosinophils Absolute Auto 100 /uL (0-450); Eosinophils Percent Auto 2.2 % (2-4); Hematocrit 41.2 % (41-53); Hemoglobin 14.4 g/dL (13.5-17.5); Lymphocytes Absolute Auto 1000 /uL (1100-4500); Mean Corpuscular HGB Conc 34.9 % (30-36); Mean Corpuscular Volume 88.8 fL (80-100); Monocytes Absolute Auto 200 /uL (0-900); Monocytes Percent Auto 6.5 % (3-14); Neutrophils Absolute Auto 2200 /uL (1500-7000); Neutrophils Percent Auto 62.9 % (50-75); Platelet Count 220 X10^3/uL (150-400); Red Blood Cell Count 4.64 X10^6/uL (4.5-5.9); Red Cell Distribution Width 13.1 % (11.6-14.8); White Blood Cell Count 3.5 X10^3/uL (4.5-11.0)
[2021-01-31 10:50] LABS: Alanine Aminotransferase 41 IU/L (<50); Albumin 4.4 g/dL (3.5-5.0); Albumin Globulin Ratio 1.3 (1.0-2.8); Alkaline Phosphatase 76 U/L (38-126); Aspartate Aminotransferase 54 IU/L (17-59); BUN Creatinine Ratio 7.6 (6-22); Bilirubin Total 0.6 mg/dL (0.2-1.3); Blood Urea Nitrogen 9 mg/dL (9-20); Calcium 9.2 mg/dL (8.4-10.2); Carbon Dioxide 29 mmol/L (22-32); Chloride 99 mmol/L (98-107); Estimated Glomerular Filt Rate > 60.0 mL/min (>60); Globulin 3.3 g/dL (1.7-4.1); Glucose 94 mg/dL (70-100); HEMOLYSIS < 15 (0-50); Potassium 4.1 mmol/L (3.4-5.1); Sodium 137 mmol/L (137-145); Total Protein 7.7 g/dL (6.3-8.2)
[2021-01-31 13:22] LABS: TSH w/ Reflex to FT4 2.04 uIU/mL (0.47-4.68)
== END ==
PROVIDERS: PCP Family Medicine; Referring Provider Family Medicine; Visit Provider Family Medicine
DX: I10 Essential (primary) hypertension (principal)
CPT/HCPCS: 36415; 80053; 84443; 85025